=== PATIENT | male | born 1950 | race Caucasian/White ===

== ENCOUNTER 2018-07-09 20:10 | Emergency (ER) | payer OTHER ==
[~2018-07-09] VITALS: Ht 165.1 cm; Wt 73.5 kg
[2018-07-09 20:15] VITALS: Ht 165.1 cm; Wt 73.5 kg
[2018-07-09 22:12] VITALS: BP 155/96
== END 2018-07-09 22:12 | disposition home or self-care (01) ==
LOC: ED 20:10
DX: S61.211A Laceration without foreign body of left index finger without damage to nail, initial encounter (principal); X58.XXXA Exposure to other specified factors, initial encounter; Y93.89 Activity, other specified; Y92.89 Other specified places as the place of occurrence of the external cause; Y99.8 Other external cause status
CPT/HCPCS: J2001; Q0092

== ENCOUNTER 2018-07-20 21:27 | Emergency (ER) | payer OTHER ==
[~2018-07-20] VITALS: Ht 165.1 cm; Wt 73.9 kg
[2018-07-20 21:45] VITALS: Ht 165.1 cm; Wt 73.9 kg
[2018-07-20 23:17] VITALS: BP 132/90
== END 2018-07-20 23:17 | disposition home or self-care (01) ==
LOC: ED 21:27
DX: S61.211D Laceration without foreign body of left index finger without damage to nail, subsequent encounter (principal); X58.XXXD Exposure to other specified factors, subsequent encounter

== ENCOUNTER 2018-08-15 15:32 | Emergency (ER) | payer OTHER ==
[~2018-08-15] VITALS: Ht 165.1 cm; Wt 72.1 kg
[2018-08-15 15:54] VITALS: Ht 165.1 cm; Wt 72.1 kg
[2018-08-15 17:29] LABS: BASOPHIL % 0.5 % (0-2); PLATELET COUNT 255 x10^3mcL (130-400); RED CELL DISTRIBUTION WIDTH 13.1 % (11.5-14.5)
[2018-08-15 17:49] LABS: CALCIUM 8.8 mg/dL (8.5-10.1); CARBON DIOXIDE 24.3 mmol/L (21-32); CHLORIDE SERUM 109 mmol/L (98-107); CREATININE SERUM 0.7 mg/dL (0.7-1.3); GFR1 > 60 mL/min; GLUCOSE SERUM 120 mg/dL (74-106); SODIUM SERUM 144 mmol/L (136-145)
[2018-08-15 17:50] LABS: LIPASE 187 IU/L (73-393)
[2018-08-15 19:23] LABS: microscopic required? NO
[2018-08-15 19:36] LABS: UA SPECIFIC GRAVITY 1.015 (1.005-1.035); urine erythrocyte NEGATIVE (NEGATIVE)
[2018-08-15 23:19] VITALS: BP 172/93
== END 2018-08-15 23:19 | disposition home or self-care (01) ==
LOC: ED 15:32
PROVIDERS: Emergency Medicine
DX: S20.212A Contusion of left front wall of thorax, initial encounter (principal); S30.1XXA Contusion of abdominal wall, initial encounter; M50.30 Other cervical disc degeneration, unspecified cervical region; Z90.89 Acquired absence of other organs; Z90.49 Acquired absence of other specified parts of digestive tract; W14.XXXA Fall from tree, initial encounter; Y93.89 Activity, other specified; Y92.89 Other specified places as the place of occurrence of the external cause; Y99.8 Other external cause status
CPT/HCPCS: J3010; J7030; Q9967

== ENCOUNTER 2018-12-20 13:15 | Emergency (ER) | payer OTHER ==
[~2018-12-20] VITALS: Ht 165.1 cm; Wt 70.3 kg
[2018-12-20 13:28] VITALS: Ht 165.1 cm; Wt 70.3 kg
[2018-12-20 14:30] LABS: BASOPHIL % 0.1 % (0-2); PLATELET COUNT 222 x10^3mcL (130-400); RED CELL DISTRIBUTION WIDTH 12.3 % (11.5-14.5)
[2018-12-20 14:37] LABS: UA SPECIFIC GRAVITY 1.025 (1.005-1.035); microscopic required? YES; urine erythrocyte TRACE (NEGATIVE)
[2018-12-20 14:37] LABS: CARBON DIOXIDE 27.9 mmol/L (21-32); CHLORIDE SERUM 97 mmol/L (98-107); GFR1 > 60 mL/min; GLUCOSE SERUM 122 mg/dL (74-106); SODIUM SERUM 134 mmol/L (136-145)
[2018-12-20 14:41] LABS: ALBUMIN 3.6 g/dL (3.4-5.0); ALKALINE PHOSPHATASE 100 U/L (46-116); ALT/SGPT 29 U/L (16-63); AST/SGOT 27 U/L (15-37); BILIRUBIN TOTAL 0.7 mg/dL (0.20-1.00); LIPASE 121 IU/L (73-393)
[2018-12-20 19:06] VITALS: BP 96/75
== END 2018-12-20 19:06 | disposition home or self-care (01) ==
LOC: ED 13:15
PROVIDERS: Emergency Medicine
DX: E87.6 Hypokalemia (principal); R19.7 Diarrhea, unspecified; R10.13 Epigastric pain; Z90.89 Acquired absence of other organs
CPT/HCPCS: 87046; 87046-59; J1885; J7030